=== PATIENT | female | born 2005 | race Two or more races ===

== ENCOUNTER 2023-07-03 09:15 | Emergency (ER) | payer OTHER ==
[~2023-07-03] VITALS: Ht 167.6 cm; Wt 71.4 kg
[2023-07-03] MEDS ORDERED: FERR325T3 PO (09:23)
[2023-07-03 09:59] LABS: BASO % 0.3 % (0.0-1.0); EOS % 0.3 % (0.0-3.0); HEMATOCRIT 40.1 % (36.0-47.0); HEMOGLOBIN 12.9 g/dl (12.0-15.5); LYMPH # 1.9 10^3/uL (1.5-5.0); MEAN CORPUSCULAR HEMOGLOBIN 26.4 pg (27.0-33.0); MEAN CORPUSCULAR HGB CONC 32.2 g/dl (32.0-36.5); MONO # 0.5 10^3/uL (0.0-0.8); MONO % 5.3 % (2.0-8.0); NEUTROPHILS % 73.9 % (36.0-66.0); PLATELET COUNT, AUTOMATED 304 10^3/uL (150-450); RED BLOOD COUNT 4.89 10^6/uL (4.00-5.40); WHITE BLOOD COUNT 9.5 10^3/uL (4.0-10.0)
[2023-07-03 10:22] LABS: CK-MB VALUE MASS < 1.0 NG/ML (<3.6); LIPASE 49 U/L (12-53)
[2023-07-03 10:24] LABS: CPK CREATINE PHOSPHOKINASE 32 U/L (34-145); MB/CK RELATIVE INDEX 3.12 (< OR =4)
[2023-07-03 10:25] LABS: ALBUMIN 3.8 G/DL (3.2-5.2); ALKALINE PHOSPHATASE 61 U/L (46-116); ALT/SGPT 11 U/L (7.0-40); AST/SGOT < 8 U/L (<34); BILIRUBIN,DIRECT 0.1 MG/DL (<0.4); BILIRUBIN,TOTAL 0.3 MG/DL (0.3-1.2); BLOOD UREA NITROGEN 9 MG/DL (9-23); CALCIUM LEVEL 9.1 MG/DL (8.5-10.1); CARBON DIOXIDE LEVEL 24 MMOL/L (20-31); CHLORIDE LEVEL 105 MMOL/L (98-107); CREATININE FOR GFR 0.65 MG/DL (0.55-1.30); GLUCOSE, FASTING 91 MG/DL (60-100); POTASSIUM SERUM 4.1 MMOL/L (3.5-5.1); SODIUM LEVEL 137 MMOL/L (136-145); TOTAL PROTEIN 7.1 G/DL (5.7-8.2)
[2023-07-03] MEDS ORDERED: PRED20TA PO (10:30)
[2023-07-03 10:46] VITALS: BP 116/56; TEMP 98.2; O2SAT 100
== END 2023-07-03 10:49 | disposition home or self-care (01) ==
LOC: M ED 09:15
DX: R07.89 Other chest pain (principal); D64.9 Anemia, unspecified; F17.200 Nicotine dependence, unspecified, uncomplicated

== ENCOUNTER → 2023-08-07 | Outpatient (CLI) | payer OTHER ==
[~2023-08-07] MED LIST: FERR325T3 PO; PRED20TA PO
[2023-08-07 14:36] LABS: HEMATOCRIT 39.1 % (36.0-47.0); HEMOGLOBIN 12.8 g/dl (12.0-15.5); MEAN CORPUSCULAR HEMOGLOBIN 27.2 pg (27.0-33.0); MEAN CORPUSCULAR HGB CONC 32.7 g/dl (32.0-36.5); MEAN CORPUSCULAR VOLUME 83.2 fl (80.0-96.0); PLATELET COUNT, AUTOMATED 292 10^3/uL (150-450); WHITE BLOOD COUNT 9.7 10^3/uL (4.0-10.0)
[2023-08-07 15:30] LABS: HIV 1&2 SCREEN NEGATIVE (NEGATIVE)
[2023-08-07 15:38] LABS: HEPATITIS C VIRUS ABY INDEX 0.16 INDEX (<0.8)
[2023-08-07 15:57] LABS: GC DNA AMPLIFICATION NEGATIVE (NEGATIVE)
== END ==
LOC: M PLALAB 10:37
PROVIDERS: ATTEND Advanced Practice Midwife
DX: O34.211 Maternal care for low transverse scar from previous cesarean delivery (principal)

== ENCOUNTER → 2023-10-06 | Outpatient (REF) | payer OTHER | LOC: M SFHCWAGY 16:48 | PROVIDERS: ATTEND Obstetrics & Gynecology | DX: R82.90 Unspecified abnormal findings in urine (principal) ==

== ENCOUNTER → 2023-10-08 | Outpatient (CLI) | payer OTHER | LOC: M WHC 10:31 | PROVIDERS: ATTEND Obstetrics & Gynecology | DX: Z34.92 Encounter for supervision of normal pregnancy, unspecified, second trimester (principal) ==

== ENCOUNTER → 2023-11-12 | Outpatient (CLI) | payer OTHER ==
[2023-11-12 17:24] LABS: HEMATOCRIT 32.8 % (36.0-47.0); HEMOGLOBIN 10.5 g/dl (12.0-15.5); MEAN CORPUSCULAR HEMOGLOBIN 26.3 pg (27.0-33.0); MEAN CORPUSCULAR VOLUME 82.2 fl (80.0-96.0); PLATELET COUNT, AUTOMATED 294 10^3/uL (150-450); RED BLOOD COUNT 3.99 10^6/uL (4.00-5.40)
== END ==
LOC: M PLALAB 15:36
PROVIDERS: ATTEND Obstetrics & Gynecology
DX: Z36.89 Encounter for other specified antenatal screening (principal); Z3A.25 25 weeks gestation of pregnancy

== ENCOUNTER → 2024-01-27 | Outpatient (REF) | payer OTHER ==
[~2024-01-27] MED LIST changes: +COLA100C5 PO; +PRENTAB53 PO; +VITA500C24 PO
== END ==
LOC: M SFHCWAGY 12:52
PROVIDERS: ATTEND Specialist
DX: Z34.83 Encounter for supervision of other normal pregnancy, third trimester (principal)

== ENCOUNTER 2024-02-11 07:19 | Inpatient (IN) | payer OTHER ==
[2024-02-11] VITALS (19 sets, daily range): BP systolic 101–123; BP diastolic 52–70; TEMP 96.5; O2SAT 97–100
[~2024-02-11] VITALS: Ht 167.6 cm; Wt 89.7 kg
[2024-02-11] MEDS ORDERED: ACET-907 PO (07:39)
[2024-02-11] MEDS ORDERED: UNIS25TA5 PO (07:39)
[2024-02-11] MEDS: LR 1,000 ML IV SCH ×3 (07:50→15:48)
[2024-02-11] MEDS ORDERED: METHYLERGONOVINE MALEATE 0.2MG/ML 1ML VIAL IM PRN (07:50)
[2024-02-11] MEDS ORDERED: CARBOPROST TROMETHAMINE 250 MCG/ML AMP IM PRN (07:50)
[2024-02-11] MEDS ORDERED: OXYTOCIN DRIP 30 UNITS in IV 1 EA IV PRN (07:50)
[2024-02-11] MEDS ORDERED: TRANEXAMIC ACID INJection 1,000 MG in NS 100 ML IV PRN (07:50)
[2024-02-11] MEDS ORDERED: HOME MED LIST COMPLETE! XX SCH (08:10)
[2024-02-11] MEDS: ceFAZolin SOD 2 GM in IV 1 EA IV ONE (08:22)
[2024-02-11] MEDS: BICITRA 30ML SOLN UDC PO ONE (08:22)
[2024-02-11] MEDS: LACTATED RINGER'S 1000 ML IV STA (08:22)
[2024-02-11 08:35] LABS: HEMATOCRIT 37.1 % (36.0-47.0); HEMOGLOBIN 12.4 g/dl (12.0-15.5); MEAN CORPUSCULAR HEMOGLOBIN 27.7 pg (27.0-33.0); MEAN CORPUSCULAR HGB CONC 33.4 g/dl (32.0-36.5); PLATELET COUNT, AUTOMATED 222 10^3/uL (150-450); RED BLOOD COUNT 4.47 10^6/uL (4.00-5.40)
[2024-02-11] MEDS ORDERED: OXYTOCIN 30UNITS IN 0.9% NaCl 500ML IV BAG As Ordered ONE (10:47)
[2024-02-11] MEDS ORDERED: PHENYLephrine 500MCG 5ML (100MCG/ML) SYRINGE As Ordered ONE (10:47)
[2024-02-11] MEDS ORDERED: ONDANSETRON 4MG 2ML VIAL As Ordered ONE (10:47)
[2024-02-11] MEDS ORDERED: METOCLOPRAMIDE INJ 10MG/2ML VIAL As Ordered ONE (10:47)
[2024-02-11] MEDS ORDERED: MORPHINE PRES-FREE INJ 10 MG/10 ML VIAL As Ordered ONE (10:47)
[2024-02-11] MEDS ORDERED: KETOROLAC 60MG 2ML VIAL As Ordered ONE (10:47)
[2024-02-11] MEDS ORDERED: ePHEDrine SULFATE 25 MG/5 ML(5MG/ML) SYRINGE As Ordered ONE (10:47)
[2024-02-11] MEDS ORDERED: ACETAMINOPHEN 1000MG 100ML IV BAG As Ordered ONE (10:47)
[2024-02-11] MEDS ORDERED: ANUSOL HC CREAM 30GM TOP PRN (11:40)
[2024-02-11] MEDS ORDERED: MORPHINE 4 MG/ML 1ML VIAL IV PRN (11:40)
[2024-02-11] MEDS ORDERED: ONDANSETRON 4MG 2ML VIAL IV PRN ×2 (11:40→11:50)
[2024-02-11] MEDS ORDERED: RHOGAM 300MCG (1500IU) INJ IM SCH (11:40)
[2024-02-11] MEDS ORDERED: PERCOCET 5MG/325MG TAB PO PRN ×2 (11:40)
[2024-02-11] MEDS ORDERED: SIMETHICONE 80MG CHEW TAB PO PRN (11:40)
[2024-02-11] MEDS ORDERED: COLA100C5 PO (11:46)
[2024-02-11] MEDS ORDERED: PERCOCET PO (11:46)
[2024-02-11] MEDS ORDERED: IBUP80TA PO (11:46)
[2024-02-11] MEDS ORDERED: oxyCODONE 5MG TAB PO PRN (11:50)
[2024-02-11] MEDS: SLF 3 ML SYR IV SCH (11:50)
[2024-02-11] MEDS ORDERED: **NOTE PATIENT COMMENT** MISC XX SCH (11:50)
[2024-02-11] MEDS ORDERED: NALOXONE INJ 0.4MG/1ML VIAL IV PRN ×2 (11:50)
[2024-02-11] MEDS ORDERED: METOCLOPRAMIDE INJ 10MG/2ML VIAL IV PRN ×2 (11:50)
[2024-02-11] MEDS ORDERED: diphenhydrAMINE 50MG/ML VIAL IV PRN (11:50)
[2024-02-11] MEDS ORDERED: HYDROMORPHONE HCL 0.5 MG/ 0.5 ML SYRINGE IV PRN (11:50)
[2024-02-11] MEDS ORDERED: fentaNYL 100 MCG/2 ML INJECTION IV PRN (11:50)
[2024-02-11] MEDS: OXYTOCIN DRIP 30 UNITS in IV 1 EA IV SCH (11:57)
[2024-02-11] MEDS: KETOROLAC 30 MG/ML 1ML VIAL IV SCH (17:09)
[2024-02-11] MEDS: DOCUSATE SODIUM 100MG CAPSULE PO SCH (20:56)
[2024-02-12 02:00] VITALS: BP 104/54; O2SAT 100
[2024-02-12] MEDS: ACETAMINOPHEN 500 MG TAB PO PRN (03:19)
[2024-02-12 06:00] VITALS: BP 94/57; O2SAT 97
[2024-02-12 07:12] LABS: HEMATOCRIT 30.7 % (36.0-47.0); MEAN CORPUSCULAR HEMOGLOBIN 28.1 pg (27.0-33.0); MEAN CORPUSCULAR HGB CONC 33.6 g/dl (32.0-36.5); MEAN CORPUSCULAR VOLUME 83.9 fl (80.0-96.0); PLATELET COUNT, AUTOMATED 197 10^3/uL (150-450); RED BLOOD COUNT 3.66 10^6/uL (4.00-5.40); WHITE BLOOD COUNT 13.5 10^3/uL (4.0-10.0)
[2024-02-12 07:21] LABS: HEMOGLOBIN 10.3 g/dl (12.0-15.5)
[2024-02-12] MEDS: PRENATAL VITAMINS CHEWABLE TABLET PO SCH (09:29)
[2024-02-12 10:00] VITALS: BP 111/55; O2SAT 98
[2024-02-12 14:00] VITALS: BP 103/53; O2SAT 97
[2024-02-12] MEDS: IBUPROFEN 800 MG TAB PO SCH (15:50)
[2024-02-12 18:00] VITALS: BP 102/56; O2SAT 96
[2024-02-12 22:00] VITALS: BP 107/53; O2SAT 97
[2024-02-13 02:00] VITALS: BP 105/51; O2SAT 97
[2024-02-13 06:00] VITALS: BP 107/58; O2SAT 97
[2024-02-13] MEDS: MEASLES,MUMPS,RUBELLA VACCINE INJ (MMR-II) SC.IMMUN ONE (07:31)
== END 2024-02-13 13:35 | disposition home or self-care (01) | DRG 773 ==
LOC: M LDI 07:19 → M OBS 12:59
PROVIDERS: ADMIT Obstetrics & Gynecology; ATTEND Obstetrics & Gynecology
PROC: 10D00Z1 Extraction of Products of Conception, Low, Open Approach (ICD-10-PCS; principal; 2024-02-11 09:30)
DX: O34.211 Maternal care for low transverse scar from previous cesarean delivery (principal); Z3A.39 39 weeks gestation of pregnancy; Z37.0 Single live birth

== ENCOUNTER 2024-08-28 02:48 | Emergency (ER) | payer OTHER ==
[~2024-08-28 02:48] MED LIST changes: +ACET-907 PO; +IBUP80TA PO; +PERCOCET PO; +UNIS25TA5 PO
[2024-08-28 04:53] VITALS: BP 108/57; TEMP 96.8; O2SAT 97
== END 2024-08-28 04:47 | disposition home or self-care (01) ==
LOC: M ED 02:48
DX: S09.92XA Unspecified injury of nose, initial encounter (principal); Y92.019 Unspecified place in single-family (private) house as the place of occurrence of the external cause; Y93.9 Activity, unspecified; Y99.9 Unspecified external cause status; F17.290 Nicotine dependence, other tobacco product, uncomplicated; Z79.1 Long term (current) use of non-steroidal anti-inflammatories (NSAID); Z79.810 Long term (current) use of selective estrogen receptor modulators (SERMs); Z79.899 Other long term (current) drug therapy